=== PATIENT | male | born 1975 | race Caucasian/White ===

== ENCOUNTER 2018-11-17 11:18 | Emergency (ER) | payer OTHER ==
[2018-11-17] MEDS ORDERED: Tetan/Diph/Pertus SYR(Tdap)* 0.5 ML SYR(BOOSTRIX) use SYR IM ONE (11:35)
--- NOTE | 2018-11-17 11:50 | ED ---
Upper Extremity Pain - HPI Summary HPI Summary: [id number] patient presents with left hand injury prior to arrival. 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 He denies numbness or tingling but has pain with extension of his left ring finger and may have some weakness here. His bleeding is mostly controlled. He is unsure of his last tetanus and is open to receiving a booster today. Reports pain is 5 out of 10 at present and does not want anything for pain at this point in time. - History of Current Complaint Chief Complaint: EDLacSutureRecheck Stated Complaint: LAC ON HAND Time Seen by Provider: 11/17/18 11:20 Hx Obtained From: Patient - Allergies/Home Medications Allergies/Adverse Reactions: Allergies Allergy/AdvReac Type Severity Reaction Status Date / Time No Known Allergies Allergy Verified 11/17/18 11:23 PMH/Surg Hx/FS Hx/Imm Hx Previously Healthy: Yes Endocrine/Hematology History: Denies: Hx Anticoagulant Therapy, Hx Blood Disorders, Hx Unexplained Bleeding , Autoimmune Disease - Immunization History Immunizations Up to Date: Unable to Obtain/Confirm Infectious Disease History: No Infectious Disease History: Denies: Hx of Known/Suspected MRSA, Traveled Outside the [place] in Last 30 Days - Social History Occupation: Employed Full-time Alcohol Use: Rare Hx Substance Use: No Substance Use Type: Reports: None Hx Tobacco Use: No Smoking Status (MU): Never Smoked Tobacco Review of Systems Positive: no symptoms reported Positive: Arthralgia - hurts to move Left , Decreased ROM Skin: Other - abrasion and laceration Positive: Weakness - ?. Negative: Paresthesia, Numbness Psychological: Normal All Other Systems Reviewed And Are Negative: Yes Physical Exam Triage Information Reviewed: Yes Vital Signs On Initial Exam: Initial Vitals Temp Pulse Resp BP Pulse Ox 97.0 F 68 16 123/83 98 11/17/18 11:19 11/17/18 11:19 11/17/18 11:19 11/17/18 11:19 11/17/18 11:19 Vital Signs Reviewed: Yes Appearance: Positive: Well-Appearing, Well-Nourished, Pain Distress - mild Skin: Positive: Warm, Skin Color Reflects Adequate Perfusion - lac over dorsal aspect of Left hand - bleeding well controlled - appears deep - no debris observed, possible tendon injury Head/Face: Positive: Normal Head/Face Inspection Eyes: Positive: EOMI ENT: Positive: Hearing grossly normal Respiratory/Lung Sounds: Positive: Breath Sounds Present Cardiovascular: Positive: Pulses are Symmetrical in both Upper and Lower Extremities Musculoskeletal: Positive: Strength/ROM Intact - all other phalanges and wrist, Limited @ - Left ring finger - pain w/ extension and popped w/ resistance, Pain @ - w/ moving ring finger into extension Neurological: Positive: Normal, Alert, Oriented to Person Place, Time, CN Intact II-III. Negative: Sensory/Motor Intact Psychiatric: Positive: Normal Procedures - Splinting Left Upper Extremity Location: Left UE Hand-Made Type: fiberglass Splint: volar Pre-Proc Neuro Vasc Exam: normal Post-Proc Neuro Vasc Exam: normal - Laceration/Wound Repair 1 Location: upper extremity - Left dorsal hand Description: Linear Anesthesia: Local, 1.0%, Lido Length, Depth and Shape: 2cm x 4mm Betadine Prep?: No - soaked in hibaclens with water solution Irrigated w/ Saline (ccs): 200 - sterile saline Laceration/Wound Explored: clean Closure: Single Layer Suture Type: Prolene - 5-0 Number of Sutures: 3 Layer Closure?: No Sterile Dressing Applied?: Yes - xerform + gauze + volar splint - pt tolerated well Diagnostics - Vital Signs Vital Signs Temp Pulse Resp BP Pulse Ox 11/17/18 11:19 97.0 F 68 16 123/83 98 - Laboratory Lab Statement: Any lab studies that have been ordered have been reviewed, and results considered in the medical decision making process. Re-Evaluation - Re-Evaluation First Eval Change: Improved - pt reports improved pain w/ closure Course/Dx - Course Course Of Treatment: XR: no fx, no FB. High clinical suspicion of Left ring finger extensor tendon rupture w/ overlying laceration. Spoke w/ Dr. Riggs who advised irrigation, closure, splint and close f/u today. Pt agrees w/ plan and will call for appt today and go to office for eval. - Diagnoses Provider Diagnoses: Laceration of left hand involving tendon Discharge - Sign-Out/Discharge Documenting (check all that apply): Patient Departure - Discharge Plan Condition: Stable Disposition: HOME Prescriptions: Cephalexin CAP* [Keflex CAP*] 500 mg PO QID #20 cap Patient Education Materials: Tendon Rupture (ED) Forms: *Work Release Referrals: La Riggs MD [Medical Doctor] - Additional Instructions: Keep splint clean, dry and in place until seen by orthopedics/hand specialist later today. They will re-evaluate your injury and discuss a follow-up plan to repair tendon. Call now to schedule appointment today. In the meantime, rest, elevate and ice to reduce pain/swelling. *If you develop numbness, tingling, weakness, swelling or skin discoloration, loosen CESARIO wrap and elevate arm for 20 minutes. If symptoms persist, call orthopedics or return to ED - Billing Disposition and Condition Condition: STABLE Disposition: Home
[2018-11-17] MEDS ORDERED: HYDROcodone/ACETAMIN 5-325 MG* 1 TAB PO ONE (12:27)
[2018-11-17] MEDS ORDERED: Ibuprofen TAB* 800 MG PO ONE (12:30)
[2018-11-17] MEDS ORDERED: Cephalexin CAP* 500 MG PO ONE (13:08)
[2018-11-17 13:42] VITALS: BP 121/73
== END 2018-11-17 13:39 | disposition home or self-care (01) ==
LOC: ED 11:18
DX: S61.412A Laceration without foreign body of left hand, initial encounter (principal); W22.8XXA Striking against or struck by other objects, initial encounter; Y92.9 Unspecified place or not applicable
CPT/HCPCS: 12001; 90471; 90715; 99282; A9270-GY

== ENCOUNTER 2018-11-19 10:15 | Day surgery (SDC) | payer OTHER ==
--- NOTE | 2018-11-18 10:05 | HP ---
PREOPERATIVE HISTORY AND PHYSICAL: DATE OF SURGERY/ADMISSION: 11/19/18 [facility] DATE OF OFFICE VISIT/ENCOUNTER: 11/17/18 ATTENDING SURGEON: La Riggs MD * (DICTATED BY MG TRINH) PROCEDURE: Extensor tendon repair, left long finger. CHIEF COMPLAINT: Left long finger extensor tendon laceration. 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 He was pulling a pipe out of a wall and he hit the dorsum of his hand on an electrical box and ended up cutting through the skin and the extensor tendon of the left long finger. He was seen in the emergency room, was unable to fully extend his middle finger and when he tried to resist extending the middle finger as he was examined, he felt a pop. The wound was washed and sutured and he was referred to Dr. Riggs for further evaluation and treatment considerations. The patient reports he feels a little bit of numbness on the back of his hand, this is his nondominant hand. After evaluation by Dr. Riggs, it is apparent that he has lacerated the extensor tendon of the left long finger and he has consented to proceed with surgical repair. PAST MEDICAL HISTORY: Unremarkable. PAST SURGICAL HISTORY: Right ACL reconstruction. CURRENT MEDICATIONS: None. ALLERGIES: No known drug allergies. FAMILY MEDICAL HISTORY: Noncontributory. 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 He denies tobacco use and recreational drug use. He drinks alcohol on occasion. REVIEW OF SYSTEMS: Negative for general, cephalic, cardiovascular, respiratory , GI, , other musculoskeletal. Integumentary is positive for laceration on the dorsum of left hand. Negative endocrine, neurologic, and hematologic symptoms. Infectious disease is negative for history of MRSA, hepatitis C, HIV. PHYSICAL EXAMINATION GENERAL: Well-developed, well-nourished 43-year-old male in no acute distress. VITAL SIGNS: Height 5 feet 9-1/2 inches, weight 210 pounds. Pulse rate 72, blood pressure 120/84. HEENT: Normocephalic and atraumatic. Pupils are equal, round, and reactive to light and accommodation. Extraocular movements are intact. NECK: Supple. No palpable lymph nodes. Throat is clear. PULMONARY: Lungs are clear to auscultation bilaterally. No wheezes, rales, or rhonchi. CARDIOVASCULAR: Regular rate and rhythm. S1 and S2. No murmurs, rubs, or gallops. No edema. ABDOMEN: Positive bowel sounds, soft, nontender. NEUROLOGIC: Alert and oriented x3. Cranial nerves II through XII are intact. MUSCULOSKELETAL: On exam of his left hand, he has a laceration just proximal to the MP joint at the middle finger. He cannot extend his finger against resistance and he has an extensor lag of about 30 degrees. He can make a fist and neurovascular function is intact. IMPRESSION: Extensor tendon laceration, left middle finger. PLAN/RECOMMENDATIONS: The patient is scheduled to undergo an extensor tendon repair, left long finger with Dr. Riggs on 11/19/18. He will return to the office 10 days postop for followup and suture removal. A prescription for [place] was e- scribed to the patient's pharmacy for postoperative pain management. MG TRINH [id number]/[facility] #: [id number] CESAR
[~2018-11-19 10:15] MED LIST: Buffered Lidocaine 1% SYRIN* 1 ML/SYRINGE INTRADERM ONE; Lactated Ringers 1000 ML Bag* 1,000 ML IV SCH; Lidocaine 1% INJ* 10 MG/ML 30 ML SDV ONE
[2018-11-19] MEDS ORDERED: ceFAZolin 2 GM PREMIX in ORs 2 GM/50 ML BAG IVPB ONE (10:44)
[2018-11-19] MEDS ORDERED: fentaNYL* 50 MCG/ML 2 ML VIAL (100 MCG VIAL) ONE (12:06)
[2018-11-19] MEDS ORDERED: Midazolam* 1 MG/ML 2 ML VIAL (2 MG) ONE ×2 (12:06→12:21)
[2018-11-19] MEDS ORDERED: Propofol* 10 MG/ML 20 ML BTL ONE (12:14)
[2018-11-19] MEDS ORDERED: Lidocaine 2% PF * 5 ML VIAL ONE (12:14)
[2018-11-19] MEDS ORDERED: Naloxone* 0.4 MG/ML 1 ML VIAL IV PRN (12:41)
[2018-11-19 12:51] VITALS: BP 95/73
[2018-11-19] MEDS ORDERED: Ketorolac INJ* 30 MG/ML 1 ML VIAL ONE (12:58)
--- NOTE | 2018-11-19 21:17 | OP ---
DATE OF OPERATION: 11/19/18 [facility] DATE OF : 79 SURGEON: La Riggs MD RAIL WALKER: MG Mo ANESTHESIA: Local MAC. PRE-OP DIAGNOSIS: Left long finger extensor tendon laceration. POST-OP DIAGNOSIS: Left long finger extensor tendon laceration. OPERATIVE PROCEDURE: Left long finger extensor tendon repair. ESTIMATED BLOOD LOSS: Zero. TOURNIQUET TIME: Approximately 15 minutes. INDICATIONS FOR PROCEDURE: José Manuel is a 43-year-old man who was working and he suffered a laceration on the dorsal aspect of his left hand over the middle finger. Since the injury, he cannot extend the middle finger. He presents for extensor tendon repair. DESCRIPTION OF PROCEDURE: The patient was brought to the operating room, was given a sedation anesthetic, and a local infiltration of 10 cc of 1% plain lidocaine on the dorsal aspect of his left hand. The skin of his left hand and forearm was prepped and draped in the usual sterile fashion. The hand and forearm were exsanguinated and the tourniquet elevated to 250 mmHg. The sutures were removed and the wound was explored. There was a complete laceration of the extensor tendon at about the mid metacarpal level. The wound was copiously irrigated with saline and then the tendon was reapproximated with 4-0 nylon suture in interrupted fashion. The wound was again irrigated and the skin edges were reapproximated with 4-0 nylon suture. The wound was dressed with Xeroform, 4x4, Webril, and a volar splint. The patient tolerated the procedure well, was brought to the recovery room in good condition. [id number]/[facility] #: [id number] MTDD
== END 2018-11-19 13:28 | disposition home or self-care (01) ==
LOC: OREAST 10:15
PROVIDERS: ATTEND Orthopaedic Surgery
DX: S66.323A Laceration of extensor muscle, fascia and tendon of left middle finger at wrist and hand level, initial encounter (principal); W45.8XXA Other foreign body or object entering through skin, initial encounter; Y92.238 Other place in hospital as the place of occurrence of the external cause; Y99.0 Civilian activity done for income or pay
CPT/HCPCS: J0690; J1885; J2250; J2704; J3010